=== PATIENT | female | born 1980 | race Caucasian/White ===

== ENCOUNTER 2017-12-06 12:20 | Emergency (ER) | payer OTHER ==
[2017-12-06 12:42] VITALS: BP 113/81; PULSE 90; RESP 18; TEMP 98.3; O2SAT 99
--- NOTE | 2017-12-06 13:06 | C.PDOC ---
History Of Present Illness 37 year old female presents to the ED c/o intermittent swelling and pain to the tip of her 4th left finger for the past 2 months. Patient reports she has not tried any medications for her pain. Patient denies weakness, numbness, trauma, injury, fall, sensory or vascular deficits. Time Seen by Provider: 12/06/17 12:47 Chief Complaint (Nursing): Upper Extremity Problem/Injury History Per: Patient History/Exam Limitations: no limitations Onset/Duration Of Symptoms: Intermittent Episodes Current Symptoms Are (Timing): Still Present Quality: "Pain" Recent travel outside of the [place]: No Additional History Per: Patient Past Medical History Reviewed: Historical Data, Nursing Documentation, Vital Signs Vital Signs: Last Vital Signs Temp 98.3 F 12/06/17 12:40 Pulse 90 12/06/17 12:40 Resp 18 12/06/17 12:40 BP 113/81 12/06/17 12:40 Pulse Ox 99 12/06/17 14:03 - Medical History PMH: No Chronic Diseases Surgical History: No Surg Hx - [facility] Procedures TETANUS TOXOID ADMINIST (08/10/13) Family History: States: Unknown Family Hx - Social History Hx Tobacco Use: No Hx Alcohol Use: No Hx Substance Use: No - Immunization History Hx Tetanus Toxoid Vaccination: No Hx Influenza Vaccination: No Hx Pneumococcal Vaccination: No Review Of Systems Constitutional: Negative for: Fever, Chills Cardiovascular: Negative for: Chest Pain Respiratory: Negative for: Cough, Shortness of Breath Gastrointestinal: Negative for: Nausea, Vomiting, Abdominal Pain Musculoskeletal: Positive for: Hand Pain (left 4th finger) Skin: Negative for: Rash Neurological: Negative for: Weakness, Numbness Physical Exam - Physical Exam Appears: Non-toxic, No Acute Distress Skin: Normal Color, Warm, Dry Head: Atraumatic, Normacephalic Extremity: Normal ROM, Tenderness (mild, to distal phalanx ulnar aspect of 4th left digit, tendons are intact), Capillary Refill (< 2 seconds), No Deformity, Swelling (distal phalanx of 4th left digit), No Other (distal phalanx ulnar aspect 4th left digit no fluctuance) Pulses: Left Radial: Normal, Right Radial: Normal Neurological/Psych: Oriented x3, Normal Speech, Normal Cognition, Normal Motor, Normal Sensation Gait: Steady ED Course And Treatment O2 Sat by Pulse Oximetry: 99 (On RA) Pulse Ox Interpretation: Normal - Other Rad Left Hand X-Ray X-Ray: Viewed By Me, Read By Radiologist Interpretation: No fractrures, no osteomyelitis Medical Decision Making Medical Decision Making: Impression : finger pain/cellulitis Plan: * Left hand X-Ray * Keflex 500 mg PO * Motrin 600 mg PO Patient will be d/c home with instructions to follow up with PMD in 1-2 days. Disposition Counseled Patient/Family Regarding: Studies Performed, Diagnosis, Need For Followup, Rx Given - Disposition Referrals: [facility] [Outside] Disposition: HOME/ ROUTINE Disposition Time: 13:56 Condition: STABLE Additional Instructions: follow up with doctor in 2 days call to make an appointment continue medications at home return to ER if symptoms worsens or progress Prescriptions: Cephalexin [cephalexin] 500 mg PO QID #40 cap traMADol [Ultram] 50 mg PO TID PRN #10 tab PRN Reason: Pain, Moderate (4-7) Instructions: Cellulitis (ED) Forms: Gen Discharge Inst Pashto, [employer] (Pashto) Print Language: SINGAPOREAN - Clinical Impression Clinical Impression: Cellulitis - Scribe Statement The provider has reviewed the documentation as recorded by the Scribe Negro Sanchez All medical record entries made by the Scribe were at my direction and personally dictated by me. I have reviewed the chart and agree that the record accurately reflects my personal performance of the history, physical exam, medical decision making, and the department course for this patient. I have also personally directed, reviewed, and agree with the discharge instructions and disposition.
--- NOTE | 2017-12-06 14:31 | RAD ---
Left hand 4th digit three views History: Pain. Comparison: None available. Findings: No evidence for acute displaced fracture or dislocation. Impression: Negative acute. If pain persists, consider MRI.
== END 2017-12-06 14:20 | disposition home or self-care (01) ==
LOC: C.ER 12:20
DX: L03.012 Cellulitis of left finger (principal)

== ENCOUNTER 2018-05-18 09:10 | Emergency (ER) | payer OTHER ==
[2018-05-18 09:22] VITALS: BP 101/69; PULSE 78; RESP 16; TEMP 98; O2SAT 98
--- NOTE | 2018-05-18 09:36 | C.PDOC ---
History Of Present Illness 37yo female, comes to ER for evaluation of an itchy rash on her bilateral forearms for the past 2 weeks. She denies any associated fever, pain, cough, rhinorrhea, or sore throat. She denies any exposure to new foods, lotions, linen , belcher, or burgess. She has no other medical complaints. Time Seen by Provider: 05/18/18 09:18 Chief Complaint (Nursing): Abnormal Skin Integrity History Per: Patient History/Exam Limitations: no limitations Onset/Duration Of Symptoms: Days Current Symptoms Are (Timing): Still Present Location Of Injury: Right: Forearm, Left: Forearm Quality Of Symptoms: Itching Additional History Per: Patient Past Medical History Reviewed: Historical Data, Nursing Documentation, Vital Signs Vital Signs: Last Vital Signs Temp 98 F 05/18/18 09:19 Pulse 78 05/18/18 09:19 Resp 16 05/18/18 09:19 BP 101/69 05/18/18 09:19 Pulse Ox 98 05/18/18 09:38 - Medical History PMH: No Chronic Diseases Surgical History: No Surg Hx - [facility] Procedures TETANUS TOXOID ADMINIST (08/10/13) Family History: States: Unknown Family Hx - Social History Hx Tobacco Use: No Hx Alcohol Use: No Hx Substance Use: No - Immunization History Hx Tetanus Toxoid Vaccination: No Hx Influenza Vaccination: No Hx Pneumococcal Vaccination: No Review Of Systems Constitutional: Negative for: Fever, Chills ENT: Negative for: Throat Pain Respiratory: Negative for: Cough, Shortness of Breath Skin: Positive for: Rash Physical Exam - Physical Exam Appears: Non-toxic, No Acute Distress Skin: Warm, Dry, Rash (bilateral forearms with large patch of dry, scaly rash with hypopigmentation. No vesicles. No palm or sole involvement.) Eye(s): bilateral: Normal Inspection Neck: Supple Chest: Symmetrical Cardiovascular: Rhythm Regular Respiratory: Normal Breath Sounds Neurological/Psych: Oriented x3 ED Course And Treatment O2 Sat by Pulse Oximetry: 98 (RA) Pulse Ox Interpretation: Normal Progress Note: Patient given prescription for topical ointment and instructed to follow up with her PMD. Patient also given list of dermatologists to visit if her symptoms do not resolve within a week. Disposition Counseled Patient/Family Regarding: Diagnosis, Need For Followup, Rx Given - Disposition Referrals: [facility] [Outside] Disposition: HOME/ ROUTINE Disposition Time: 09:35 Condition: STABLE Additional Instructions: FOLLOW UP WITH YOUR DOCTOR OR CLINIC IN 1-2 DAYS USE MEDICATIONS FOR UP TO 4 WEEKS IF SYMPTOMS CONTINUE, FOLLOW UP WITH MOBILE PHLEBOTOMIST RETURN TO EMERGENCY ROOM IF SYMPTOMS WORSEN SEGUIMIENTO CON ROMAN MDICO O CLNICA EN 1-2 MARTIN USE MEDICAMENTOS PARA HASTA 4 SEMANAS SI LOS SNTOMAS CONTINAN, SIGA CON MOBILE PHLEBOTOMIST REGRESE AL ODELL DE EMERGENCIA SI LOS SNTOMAS EMPEORAN Prescriptions: DiphenhydrAMINE [Benadryl] 25 mg PO Q6 PRN #20 cap PRN Reason: Itching / Pruritus Selenium Sulfide [Selenium Sulfide 120 ml] 1 appl TOP BID #1 lotion Instructions: Tinea Versicolor Forms: [employer] (Georgian) Print Language: POLISH - Clinical Impression Clinical Impression: Tinea versicolor - Scribe Statement The provider has reviewed the documentation as recorded by the Scribe (Hayley Reza) Provider Attestation: All medical record entries made by the Scribe were at my direction and personally dictated by me. I have reviewed the chart and agree that the record accurately reflects my personal performance of the history, physical exam, medical decision making, and the department course for this patient. I have also personally directed, reviewed, and agree with the discharge instructions and disposition.
== END 2018-05-18 09:50 | disposition home or self-care (01) ==
LOC: C.ER 09:10
DX: B36.0 Pityriasis versicolor (principal)

== ENCOUNTER 2018-05-20 08:27 | Emergency (ER) | payer OTHER ==
[2018-05-20 08:41] VITALS: BP 118/64; PULSE 73; RESP 18; TEMP 97.8; O2SAT 97
--- NOTE | 2018-05-20 08:48 | C.PDOC ---
History Of Present Illness 37 y/o female presents to ED with c/o persistent rash to neck and bilateral arms for "past few months". Patient was seen at ED on 05/18/18 for similar symptoms and diagnosed with tinea versicolor. Patient states, received Rx: benadryl, Selenium with worsening of sx, " rash appears more red now and itchy after using cream". Otherwise, pt denies fever, chills, throat tightness or swelling, CP, SOB, dyspnea, wheezing, abd. pain, N/V, denies any other active complaints. Ambulate to Ed for evaluation, not in any apparent distress. Time Seen by Provider: 05/20/18 08:46 Chief Complaint (Nursing): Abnormal Skin Integrity History Per: Patient History/Exam Limitations: no limitations Onset/Duration Of Symptoms: Days Current Symptoms Are (Timing): Still Present Past Medical History Reviewed: Historical Data, Nursing Documentation, Vital Signs Vital Signs: Last Vital Signs Temp 97.8 F 05/20/18 08:36 Pulse 73 05/20/18 08:36 Resp 18 05/20/18 08:36 BP 118/64 05/20/18 08:36 Pulse Ox 97 05/20/18 09:08 - Medical History PMH: No Chronic Diseases Surgical History: No Surg Hx - [facility] Procedures TETANUS TOXOID ADMINIST (08/10/13) Family History: States: No Known Family Hx - Social History Hx Tobacco Use: No Hx Alcohol Use: No Hx Substance Use: No - Immunization History Hx Tetanus Toxoid Vaccination: No Hx Influenza Vaccination: No Hx Pneumococcal Vaccination: No Review Of Systems Except As Marked, All Systems Reviewed And Found Negative. Constitutional: Negative for: Fever, Chills Eyes: Negative for: Vision Change ENT: Negative for: Throat Pain Cardiovascular: Negative for: Chest Pain, Palpitations, Orthopnea Respiratory: Negative for: Shortness of Breath, Wheezing Gastrointestinal: Negative for: Nausea, Vomiting Skin: Positive for: Rash Neurological: Negative for: Weakness, Numbness, Headache, Dizziness Physical Exam - Physical Exam Appears: Well, Non-toxic, No Acute Distress Skin: Warm, Dry, Rash (bilateral forearms and Neck with large patch of dry, scaly rash with hypopigmentation. No vesicles. No sole or palm ) Head: Normacephalic Eye(s): bilateral: PERRL Nose: No Flaring Oral Mucosa: Moist, No Drooling Tongue: No Swelling Lips: No Swelling Throat: No Erythema, No Exudate, Other (uvual midline, no edema.) Neck: Normal ROM, Supple Cardiovascular: Rhythm Regular Respiratory: No Decreased Breath Sounds, No Accessory Muscle Use, No Rales, No Rhonchi, No Stridor, No Wheezing Gastrointestinal/Abdominal: Soft, No Tenderness, No Guarding, No Rebound Extremity: Normal ROM, No Swelling Neurological/Psych: Oriented x3, Normal Speech ED Course And Treatment O2 Sat by Pulse Oximetry: 97 (RA) Pulse Ox Interpretation: Normal Progress Note: On re-eval, pt is afebrile, hemodynamicaly stable, not in any apparent distress. NOn-toxic. PulseOx 97% RA. ENT: no acute findings, uvula midline, no edema. Neck: Supple, (-) meningeal sign. Lungs: CTA B/L, BS equal B/L. Abd: benign, (-) guarding, (-) rebound. Skin: exam c/w rash .ikely tinea versicolor, no evidence of cellulitis. Pt advised to stop topical tx, change to oral. ref. to f/u with PMD, Derm in 2-3 days for re-eval. return if any new changes. Disposition Counseled Patient/Family Regarding: Diagnosis, Need For Followup, Rx Given - Disposition Referrals: [facility] [Outside] Disposition: HOME/ ROUTINE Disposition Time: 08:48 Condition: STABLE Additional Instructions: Keep your skin dry, avoid sweating Stop Selenium, use medication given today as prescribed Follow up with Electronic Data Interchange Specialist in 1-2 days for re-evaluation. return to ED if any worsening or new changes. Prescriptions: Ketoconazole [Nizoral] 200 mg PO ONCE #8 tab Instructions: Tinea Versicolor Forms: [employer] (Beninese) Print Language: GERMAN - Clinical Impression Clinical Impression: Tinea versicolor - PA / RACK CLEANER / Resident Statement MD/DO has reviewed & agrees with the documentation as recorded. - Scribe Statement The provider has reviewed the documentation as recorded by the Lcibsarna Kim All medical record entries made by the Lcibsaran were at my direction and personally dictated by me. I have reviewed the chart and agree that the record accurately reflects my personal performance of the history, physical exam, medical decision making, and the department course for this patient. I have also personally directed, reviewed, and agree with the discharge instructions and disposition.
== END 2018-05-20 09:44 | disposition home or self-care (01) ==
LOC: C.ER 08:27
DX: B36.0 Pityriasis versicolor (principal)

== ENCOUNTER 2018-12-15 09:06 | Emergency (ER) | payer SELFPAY ==
[2018-12-15 09:14] VITALS: RESP 18
--- NOTE | 2018-12-15 09:20 | C.PDOC ---
History Of Present Illness 38 year old female presents with flu-like symptoms x 3 days including headache, sore throat, trouble swallowing (Due to pain), ear pain, sneezing, subjective fever, body aches, lethargy, and chills. She denies any sick contacts or cough. She has been using theraflu/Tylenol Cold&Flu Severe for her symptoms without much relief. She denies any SOB, Chest pain, abdominal pain, n/v/, changes in bowel habits, or urinary symptoms ROS: As stated above PMHx: Denies PSHx: Denies Allergies: Ibuprofen (Pruritis, angioedema) SocialHx: Denies tobacco, EtoH and illicit drug use FamHx: Denies <Lana Griffin - Last Filed: 12/15/18 11:20> HPI: Influenza History Per: Patient, Patient Access Registrar <Lana Griffin - Last Filed: 12/15/18 11:20> <Maciej Hernandez - Last Filed: 12/16/18 15:52> Time Seen by Provider: 12/15/18 09:20 Chief Complaint: Flu-like Symptoms Past Medical History Reviewed: Nursing Documentation, Vital Signs Vital Signs: Last Vital Signs Temp 98.2 F 12/15/18 09:12 Pulse 72 12/15/18 09:12 Resp 18 12/15/18 09:12 BP 103/71 12/15/18 09:12 Pulse Ox 99 12/15/18 09:20 - [facility] Procedures TETANUS TOXOID ADMINIST (08/10/13) <Lana Griffin - Last Filed: 12/15/18 11:20> Vital Signs: Last Vital Signs Temp 98.2 F 12/15/18 09:12 Pulse 72 12/15/18 09:12 Resp 18 12/15/18 09:12 BP 103/71 12/15/18 09:12 Pulse Ox 99 12/15/18 09:12 - [facility] Procedures TETANUS TOXOID ADMINIST (08/10/13) Family History: States: Unknown Family Hx - Social History Hx Tobacco Use: No Hx Alcohol Use: No Hx Substance Use: No - Immunization History Hx Tetanus Toxoid Vaccination: No Hx Influenza Vaccination: No Hx Pneumococcal Vaccination: No <Maciej Hernandez - Last Filed: 12/16/18 15:52> Review Of Systems Except As Marked, All Systems Reviewed And Found Negative. (As per HPI) <PollosaranLana - Last Filed: 12/15/18 11:20> Physical Exam - Physical Exam Appears: Well, Non-toxic, No Acute Distress Skin: Normal Color, Warm, Dry Head: Atraumatic, Normacephalic Eye(s): bilateral: Normal Inspection Ear(s): Bilateral: Normal Nose: Normal Oral Mucosa: Moist Tongue: Normal Appearing Lips: Normal Appearing Gingiva: Normal Appearing Throat: Normal, No Erythema, No Exudate, No Mass Neck: Normal, Trachea Midline Lymphatic: Adenopathy (Moderate Cervical Lymphadenopathy ) Cardiovascular: Rhythm Regular Respiratory: Normal Breath Sounds Gastrointestinal/Abdominal: Normal Exam, Bowel Sounds, Soft, No Tenderness Neurological/Psych: Oriented x3, Normal Speech, Normal Cognition <Cata Griffinroberto - Last Filed: 12/15/18 11:20> Medical Decision Making Medical Decision Making: Flu-Like symptoms Mgmt: Rapid Flu - NEGATIVE Rapid Strep - NEGATIVE Reassess Will discharge with Tamiflu. Will ask patient to take Cepacol Sore throat and Sudafed for her symptoms. Asked patient to follow up at the [facility] and she agrees. <Cata Griffinroberto - Last Filed: 12/15/18 11:20> - ECG Pulse Ox Interpretation: Normal <Cata Griffinroberto - Last Filed: 12/15/18 11:20> - ECG O2 Sat by Pulse Oximetry: 99 <Maciej Hernandez - Last Filed: 12/16/18 15:52> Disposition - Disposition Disposition Time: 11:11 <Lana Griffin - Last Filed: 12/15/18 11:20> <Maciej Hernandez - Last Filed: 12/16/18 15:52> - Disposition Referrals: [facility] [Outside] Disposition: HOME/ ROUTINE Condition: FAIR Additional Instructions: You may take Sudafed for your nasal congestion You may take Cepacol Extra Strength Sore Throat for your sore throat. You may take Tylenol for your headache Please follow up at the [facility] Puede stuart Sudafed para yeager congestin nasal. Puede stuart Cepacol Extra Strength Dolor Throat para yeager dolor de garganta. Puedes stuart Tylenol para tu dolor de rebecca Por favor ari el seguimiento en la [facility].. Prescriptions: Oseltamivir Phosphate [Tamiflu] 75 mg PO BID #5 capsule Instructions: Sinusitis, Adult (DC) Forms: [employer] (Romanian) Print Language: ICELANDIC - Clinical Impression Clinical Impression: Influenza-like illness - PA / VITICULTURIST / Resident Statement MD/DO has examined the patient and agrees with the treatment plan. (38 yr old well appeaing female p/w mild LE, viral URI symptoms. Likely FLU. No meningeal signs or worst LE of life. No FND. No neuro abnl noted on exam. d/c home with tamilu, return indications and f/u) - Scribe Statement The provider has reviewed the documentation as recorded by the Scribe <Maciej Hernandez - Last Filed: 12/16/18 15:52>
[2018-12-15] MEDS ORDERED: Albuterol-Ipratrop 3 mg / 0.5 (3 ml) UD ONE (09:43)
[2018-12-15 11:27] VITALS: BP 109/73; PULSE 76; TEMP 98.1
[2018-12-16 15:52] VITALS: O2SAT 99
== END 2018-12-15 11:25 | disposition home or self-care (01) ==
LOC: C.ER 09:06
DX: J11.1 Influenza due to unidentified influenza virus with other respiratory manifestations (principal)

== ENCOUNTER 2018-12-31 09:47 | Outpatient (CLI) | payer SELFPAY | END 2018-12-31 09:48 | disposition home or self-care (01) | LOC: C.USIC 09:47 | DX: N93.9 Abnormal uterine and vaginal bleeding, unspecified (principal) ==

== ENCOUNTER 2019-01-05 10:47 | Outpatient (CLI) | payer SELFPAY | END 2019-01-05 10:48 | disposition home or self-care (01) | LOC: C.USIC 10:48 | DX: N64.52 Nipple discharge (principal) ==